=== PATIENT | female | born 1950 | race Caucasian/White ===

== ENCOUNTER → 2017-10-28 12:32 | Outpatient (CLI) | payer MEDICARE, OTHER, SELFPAY ==
--- NOTE | 2017-10-28 12:47 | EKG12_ITS ---
Test Reason : ATYPICAL CP Blood Pressure : / mmHG Vent. Rate : 070 BPM Atrial Rate : 070 BPM P-R Int : 126 ms QRS Dur : 108 ms QT Int : 406 ms P-R-T Axes : 053 066 049 degrees QTc Int : 438 ms Normal sinus rhythm Incomplete right bundle branch block Borderline ECG Confirmed by TL DAWSON, CISCO ([id number]), graphic editor DENIZ TAPIA ([id number] on 10/31/2017 3:48:33 PM Referred By: Evelia Tristan Confirmed By:CISCO BOOTHE MD
== END ==
PROVIDERS: Family Provider Internal Medicine; PCP Internal Medicine; Visit Provider Internal Medicine
DX: R07.89 Other chest pain (principal)
CPT/HCPCS: 93005

== ENCOUNTER → 2018-02-22 10:47 | Outpatient (CLI) | payer MEDICARE, OTHER, SELFPAY ==
--- NOTE | 2018-02-22 10:50 | US_ITS ---
STUDY: RENAL ULTRASOUND - COMPLETE REASON FOR EXAM: Female, 67 years old. Incomplete bladder emptying TECHNIQUE: Ultrasound evaluation of the kidneys was performed with real-time and static mae-scale imaging. COMPARISON: CT 09/16/2016 FINDINGS: RIGHT KIDNEY: Normal location of the right kidney, which is normal in size. The right kidney measures 9.9 x 3.7 x 4.5 cm. There is a normal cortex of the right kidney. The renal cortex measures 1.4 cm. There is no right renal mass or cyst. There are no right renal calculi. There is no right hydronephrosis. DISTAL RIGHT URETER: There is non-visualization of the distal right ureter. There is no demonstrated right ureterovesical junction calculus. There is a visualized right ureteral jet. LEFT KIDNEY: Normal location of the left kidney, which is normal in size. The left kidney measures 10 x 3.7 x 4.6 cm. There is a normal cortex of the left kidney. The renal cortex measures 1.3 cm. There is no left renal mass or cyst. There are no left renal calculi. There is no left hydronephrosis. DISTAL LEFT URETER: There is non-visualization of the distal left ureter. There is no demonstrated left ureterovesical junction calculus. There is a visualized left ureteral jet. AORTA: Not imaged. I.V.C.: Not imaged. BLADDER: The distended urinary bladder has a volume of 216 ml. The empty urinary bladder has a volume of 87 ml. The bladder wall thickness measures 3.6 mm. US/Kidney and Bladder IMPRESSION: The kidneys have a normal sonographic appearance. Incomplete bladder emptying. Mild bladder wall thickening. Electronically Signed: Joshua Wolfe DO at 11:02 EDT Tel , Service support ,
== END ==
PROVIDERS: Family Provider Internal Medicine; PCP Internal Medicine; Visit Provider Nurse Practitioner Adult Health
DX: N30.20 Other chronic cystitis without hematuria (principal); R33.9 Retention of urine, unspecified
CPT/HCPCS: 76770

== ENCOUNTER → 2018-06-15 08:42 | Outpatient (CLI) | payer MEDICARE, OTHER, SELFPAY ==
--- NOTE | 2018-06-15 08:44 | RAD_ITS ---
STUDY: X-RAY - LEFT KNEE REASON FOR EXAM: Female, 67 years old. Knee pain. TECHNIQUE: 4 view(s) of the knee. COMPARISON: None. FINDINGS: Normal visualized distal femur. Normal visualized proximal tibia and fibula. Normal proximal tibiofibular articulation. There is mild arthrosis of the medial femorotibial compartment. Normal lateral femorotibial compartment. Normal patellofemoral articulation. The soft tissue structures are unremarkable. RAD/Knee 4 or More Views IMPRESSION: Mild arthrosis of the medial femorotibial compartment. Electronically Signed: Pete Corcoran MD at 17:06 EDT , Service support ,
== END ==
PROVIDERS: Family Provider Internal Medicine; PCP Internal Medicine; Visit Provider Orthopaedic Surgery
DX: M25.562 Pain in left knee (principal)
CPT/HCPCS: 73564

== ENCOUNTER → 2018-08-21 17:06 | Outpatient (CLI) | payer MEDICARE, OTHER, SELFPAY ==
--- OUTSIDE RECORDS SUMMARY | 2018-10-03 16:23 | XMS RPT_ITS ---
:1950 Author Organization OHIP Care Team Providers Name Role Phone RIGO ALFARO MD Admitting Unavailable RIGO ALFARO MD Attending Unavailable RIGO ALFARO MD Primary Care Unavailable RIGO ALFARO MD Admitting Unavailable RIGO ALFARO MD Attending Unavailable RIGO ALFARO MD Primary Care Unavailable RIGO ALFARO MD Admitting Unavailable RIGO ALFARO MD Attending Unavailable RIGO ALFARO MD Primary Care Unavailable Rigo Alfaro Attending Unavailable Rigo Alfaro Referring Unavailable Rigo Alfaro Primary Care Unavailable Jacinto Emerson Attending Unavailable Rigo Alfaro Referring Unavailable Abigail Beatty Attending Unavailable Rigo Alfaro Primary Care Unavailable Alexandra Dewey Attending Unavailable Rigo Alfaro Referring Unavailable Rigo Alfaro Primary Care Unavailable Alexandra Dewey Attending Unavailable Alexandra Dewey Referring Unavailable Rigo Alfaro Primary Care Unavailable Luis Alberto Montague Attending Unavailable Luis Alberto Montague Referring Unavailable Rigo Alfaro Primary Care Unavailable PROBLEMS PROBLEMS DATE TYPE CONDITION / CODE ATTENDING STATUS SOURCE 06/15/2018 Unknown R52 - Pain, Chicorelli, Active [facility] unspecified / [facility] R52(ICD-10) Hospital Repository 02/22/2018 Unknown R33.9 - Retention Jaci, Abigail Active [facility] of urine, M Community unspecified / Hospital R33.9(ICD-10) Repository 02/22/2018 Unknown N30.20 - Other Jaci, Abigail Active [facility] chronic cystitis M Community without hematuria Hospital / N30.20(ICD-10) Repository 12/06/2017 Unknown R07.9 - Chest Ki, Jacinto Active [facility] pain, unspecified Community / R07.9(ICD-10) Hospital Repository 10/27/2017 Principle [facility] diabetes mellitus [facility] / Z131(ICD-10) Repository 10/27/2017 Secondary Encounter for RIGO ALFARO [facility] Diagnosis screening for [facility] lipoid disorders [facility] / [id number](ICD-10) Repository PROCEDURES PROCEDURES No Procedure Records FoundRESULTS RESULTS Observed: 08/21/2018 Status: F Source: [place] CULTURE, URINE 10:15 AM [facility] REPOSITORY Urine Culture ORGANISM 1: Enterococcus faecalis [place] Count >100,000 Enterococcus faecalis: REACTION Ampicillin $ <=2 S Benzylpenicillin NF 1 S Ciprofloxacin $ <=0.5 S Gentamicin SYN-S S Levofloxacin $ 0.5 S Linezolid $$$$ 1 S Nitrofurantoin $ <=16 S Streptomycin $ SYN-S S Tetracycline NF >=16 R Vancomycin $ 1 S (NF) indicates non-formulary drug at [facility]. Approval by Infectious Disease Specialist required before non-formulary drugs may be ordered and/or dispensed. * CLSI guidelines does not recommend testing of cephalosporins. This interpretation is deduced from Beta-lactam/penicillin results. Performed By: #### [id number] #### [facility] [place]. [place], [place], [address] Observed: 08/01/2018 Status: F Source: [place] URINE CULTURE 2:45 PM [facility] REPOSITORY Sp. Request/Comment: - Specimen received in preservative Culture Result - >=100,000 CFU/ml Enterococcus faecalis --> ABNORMAL ALERT Cephalosporins, clindamycin, and TMP-SMX are not effective for the treatment of enterococcal infections. --> ABNORMAL ALERT ORGANISM: Enterococcus faecalis METHOD: Minimum inhibitory concentration(Vitek) Antibiotic Interp JACOB Status Ampicillin SUSCEPTIBLE <=2 F Nitrofurantoin SUSCEPTIBLE <=16 F Vancomycin SUSCEPTIBLE 1 F Performed By: #### URCUL #### [facility] [address] [place] [address] PROGRESS Observed: 08/01/2018 Status: COMPLETED Source: JUDA 2:27 PM [facility] REPOSITORY HNO ID: [id number] Author: Dina Duffy Service: (none) Author Type: Physician Child Neurologist Type: Progress Notes Filed: 08/01/2018 6:56 PM Note Text: 08/01/2018 Patient presents with: UTI: burning, urgency and frequency x several weeks-has been on Cipro but it did not get rid of symptoms SUBJECTIVE: This is a 68 year old that is here today for Complaint(s) of dysuria and urinary frequency x several weeks. Has had frequent infections following a bowel resection. She follows with urology-Radha Beatty. She did take some cipro she had been prescribed. Symptoms did not resolve. Denies fever/chills, vomiting, back pain, abdominal pain.. 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 metoprolol tartrate, short acting, (LOPRESSOR) 25 mg tablet Take 1 tablet by mouth twice daily. atorvastatin (LIPITOR) 10 mg tablet Take 1 tablet by mouth once daily. ubidecarenone Q-10 (CO Q-10) 10 mg cap Take by mouth once daily. BIOTIN ORAL Take by mouth once daily. ergocalciferol, vitamin D2, (VITAMIN D) 50,000 unit capsule Take 1 capsule by mouth once each week. COMPOUNDED PRESCRIPTION Take 1 capsule by mouth once daily. OTC thyroid supplements Phenylephrine-Acetaminophen 5-325 mg cap Take 1 tablet by mouth daily at bedtime. omega-3 fatty acids(FISH OIL 500 MG CAP) Take one(1) capsule daily. No current facility-administered medications for this visit. SOCIAL HISTORY Social History Marital status: Spouse name: Years of education: Number of children: Social History Main Topics Smoking status: Never Smoker Smokeless tobacco: Never Used Alcohol use: Yes Comment: wine at times Drug use: No REVIEW OF SYSTEMS All other reviewed and negative other than HPI. OBJECTIVE: BP 132/84 Pulse 60 Temp 36.8 ?C (98.3 ?F) (Tympanic) Resp 16 Wt 59.4 kg (131 lb) BMI 24.35 kg/m? APPEARANCE Well appearing, alert, in no acute distress, well-hydrated, well nourished. ABDOMEN , no bruits, soft, non-tender, non-distended BACK: Normal exam, no CVA TTP ASSESSMENT/PLAN: 1. Dysuria - ICD9: 788.1, ICD10: R30.0 acute - UA positive for lisa esterase and hematuria - Send urine for culture - Begin treatment with Bactrim DS BID for 5 days - Patient education for prevention given - UA DIP, URINE (POC) - URINE CULTURE - SULFAMETHOXAZOLE 800 MG-TRIMETHOPRIM 160 MG TABLET The patient indicates understanding of these issues and agrees with the plan. Reviewed red flags and when to seek care sooner. Dina Duffy PA-C CNOV Observed: 08/01/2018 Status: COMPLETED Source: JUDA 2:15 PM [facility] REPOSITORY Office Visit (WSTR) KIMANIALLYSSA DAILY ([id number]) 1950 F Date Time Provider Department 08/01/18 2:15 PM DINA DUFFY) [facility] During your visit today, we recorded the following information about you: Temperature Pulse Respiration Blood pressure 98.3 degrees 60/minute 16/minute 132/84 Weight 59.4 kg Dina Duffy PA-C 08/01/2018 6:56 PM Signed 08/01/2018 Patient presents with: UTI: burning, urgency and frequency x several weeks-has been on Cipro but it did not get rid of symptoms SUBJECTIVE: This is a 68 year old that is here today for Complaint(s) of dysuria and urinary frequency x several weeks. Has had frequent infections following a bowel resection. She follows with urology-Radha Beatty. She did take some cipro she had been prescribed. Symptoms did not resolve. Denies fever/chills, vomiting, back pain, abdominal pain.. 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 metoprolol tartrate, short acting, (LOPRESSOR) 25 mg tablet Take 1 tablet by mouth twice daily. atorvastatin (LIPITOR) 10 mg tablet Take 1 tablet by mouth once daily. ubidecarenone Q-10 (CO Q-10) 10 mg cap Take by mouth once daily. BIOTIN ORAL Take by mouth once daily. ergocalciferol, vitamin D2, (VITAMIN D) 50,000 unit capsule Take 1 capsule by mouth once each week. COMPOUNDED PRESCRIPTION Take 1 capsule by mouth once daily. OTC thyroid supplements Phenylephrine-Acetaminophen 5-325 mg cap Take 1 tablet by mouth daily at bedtime. omega-3 fatty acids(FISH OIL 500 MG CAP) Take one(1) capsule daily. No current facility-administered medications for this visit. SOCIAL HISTORY Social History Marital status: Spouse name: Years of education: Number of children: Social History Main Topics Smoking status: Never Smoker Smokeless tobacco: Never Used Alcohol use: Yes Comment: wine at times Drug use: No REVIEW OF SYSTEMS All other reviewed and negative other than HPI. OBJECTIVE: BP 132/84 Pulse 60 Temp 36.8 ?C (98.3 ?F) (Tympanic) Resp 16 Wt 59.4 kg (131 lb) BMI 24.35 kg/m? APPEARANCE Well appearing, alert, in no acute distress, well- hydrated, well nourished. ABDOMEN , no bruits, soft, non-tender, non-distended BACK: Normal exam, no CVA TTP ASSESSMENT/PLAN: 1. Dysuria - ICD9: 788.1, ICD10: R30.0 acute - UA positive for lisa esterase and hematuria - Send urine for culture - Begin treatment with Bactrim DS BID for 5 days - Patient education for prevention given - UA DIP, URINE (POC) - URINE CULTURE - SULFAMETHOXAZOLE 800 MG-TRIMETHOPRIM 160 MG TABLET The patient indicates understanding of these issues and agrees with the plan. Reviewed red flags and when to seek care sooner. Dina Duffy PA-C Referring Provider: SELF [200] Allergies As of Date: 08/01/2018 Noted Allergy Reaction CODEINE 05/09/2006 10 - Anaphylaxis Date Reviewed: 08/01/2018 Reviewed by: Desirae Pearl LPN - Fully Assessed Reason for Visit: UTI [116] Cmt: burning, urgency and frequency x several weeks-has been on Cipro but it did not get rid of symptoms Primary Visit Diagnosis:Dysuria [R30.0] Order(s):UA DIP, URINE (POC) [[id number]] Order #: [id number]. #:[id number] URINE CULTURE [SQUUL] Order #: [id number] sulfamethoxazole-trimethoprim (BACTRIM DS) 800-160 mg per tabletTake 1 tablet by mouth twice daily for 5 days.Disp: 10 tabletRfl: 0 Prescriptions as of 08/01/2018 Sig: ASPIRIN 81 MG TABLET,DELAYED * Take 81 mg by mouth once elli* METOPROLOL TARTRATE 25 MG TAB* Take 1 tablet by mouth twice * ATORVASTATIN 10 MG TABLET Take 1 tablet by mouth once d* COENZYME Q10 10 MG CAPSULE Take by mouth once daily. BIOTIN ORAL Take by mouth once daily. ERGOCALCIFEROL (VITAMIN D2) 5* Take 1 capsule by mouth once * COMPOUNDED PRESCRIPTION Take 1 capsule by mouth once * PHENYLEPHRINE 5 MG-ACETAMINOP* Take 1 tablet by mouth daily * FISH OIL 500 MG CAPSULE Take one(1) capsule daily. 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 Encounter Status:Closed by DINA DUFFY PA-C on 08/01/18 ORTHOPEDIC VISIT Observed: 06/15/2018 Status: F Source: [place] REPORT 9:24 AM [facility] REPOSITORY [facility] [address] [place] [address] OFFICE VISIT Date of Service: 06/15/18 MR#: [id number] Acct: [id number] Name: ALLYSSA HARMAN Rep #: [id number] : 1950 Provider: Alexandra Dewey DO Age/Sex: 67/F Location: [facility] [place] [place] Status: Signed Intake Intake Visit Reasons: CK LT KNEE PAIN - NO XRAYS Sand Bobber Required: No Accompanied by: None Is patient in pain?: Yes (left knee) Pain scale (1-10): 1 Allergies codeine Allergy (Verified 01/12/17 05:48) Shortness of breath Medications Biotin 1,000 mcg PO DAILY 01/07/17 [History Confirmed 01/12/17] Equate Sever Allergy 1 tab PO QHS 01/07/17 [History Confirmed 01/12/17] Ergocalciferol [Vitamin D] 50,000 unit PO WE 01/07/17 [History Confirmed 01/12/17] Thyroid Energy 1 cap PO DAILY 01/07/17 [History Confirmed 01/12/17] Ubidecarenone [Coq10] 400 mg PO DAILY 01/07/17 [History Confirmed 01/12/17] Aspirin [Aspirin, Baby] 81 mg PO DAILY@0800 #30 tab.chew 01/15/17 [Rx] omega-3 fatty acids 1,000 mg capsule 1,000 mg PO DAILY 06/15/18 [History Confirmed 06/15/18] PFSH Medical History History of diverticulitis (Acute) history of tubal (Acute) pylynodol cyst (Acute) Surgical History History of hysterectomy (Acute) History of tonsillectomy (Acute) Family History Mother Breast cancer Arthritis Father Myocardial infarction Grandmother Arthritis Diabetes Social History Smoking Status: Never smoker alcohol intake: current alcohol intake frequency: holidays/special occasions only Alcohol type: wine HPI CK LT KNEE PAIN - NO XRAYS: Details: ALLYSSA HARMAN is a 67 year old F here today for left knee pain. Patient has had knee pain since September 2017. Patient states no known injury, but attributes the pain to being on her knees while playing with her granddaughter. Patient states the last 3 weeks has gotten worse. Patient rates her pain as a 1/10 today and describes as a burning pain. Patients pain is on the lateral left knee, the pain does not radiate. Bending or bumping the knee seems to make the pain worse. Has had some swelling which she used ice and ibuprofen to help. Denies PT, MRI, xrays and injections. Patient denies popping or clicking. Ortho Exam Left Knee Skin/Wound: Yes CDI Contralateral Normal: Yes Swelling: No Homans Sign: No Knee ROM: Yes ROM-Extension -20 to 0, Yes ROM-Flexion 0-140 (120) Examination: Yes Lat jt line tenderness, No med jt line tenderness, Yes Pain with flexion Assessment AND Plan 1. 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 X-rays were reviewed. There is no obvious fracture, dislocation, or lucency noted. Educated on the anatomy of the knee and etiology of her pain and explained that with the lat jt line pain and the pain with flexion she likely has a degenerative lateral meniscus tear. Her treatment options are HEP, steroid injection and/or PT and if that fails we will order an MRI. Gave AAOS knee program today and encouraged strengthening, if her pain worsens we can do injection. Reviewed the option of brace use, but would rather her strengthening than rely on brace. Follow up as needed for injection or sooner if pain, swelling, numbness or associated symptoms, or concerns develop. All questions answered. Patient in agreement of plan. 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 M23.301 06/15/18 0924 <Electronically signed by Alexandra Dewey DO> Date Alexandra Dewey DO Cosigner Signature: Date (if applicable) CC: KNEE 4 OR MORE Observed: 06/15/2018 Status: F Source: [facility] 8:44 AM [facility] REPOSITORY [facility] Imaging Services [address] [place] [id number] Knee 4 or More Views MR#: [id number] Acct: [id number] Name: ALLYSSA HARMAN Rep #: [id number] : 1950 F 67 From: Pete Corcoran MD PCP: Rigo Alfaro MD Status: REG CLI Study: Knee 4 or More Views Date of Exam: 06/15/18 Exam# [id number] Ordering Dr: Alexandra Dewey DO STUDY: X-RAY - LEFT KNEE REASON FOR EXAM: Female, 67 years old. Knee pain. TECHNIQUE: 4 view(s) of the knee. COMPARISON: None. FINDINGS: Normal visualized distal femur. Normal visualized proximal tibia and fibula. Normal proximal tibiofibular articulation. There is mild arthrosis of the medial femorotibial compartment. Normal lateral femorotibial compartment. Normal patellofemoral articulation. The soft tissue structures are unremarkable. RAD/Knee 4 or More Views IMPRESSION: Mild arthrosis of the medial femorotibial compartment. Electronically Signed: Pete Corcoran MD at 17:06 EDT , Service support , CC: Alexandra Dewey DO; Rigo Alfaro MD Operating Room Rn: Signed KIDNEY AND BLADDER Observed: 02/22/2018 Status: F Source: [place] 10:52 AM [facility] REPOSITORY [facility] Imaging Services [address] [place] [address] Kidney and Bladder MR#: [id number] Acct: [id number] Name: ALLYSSA HARMAN Rep #: [id number] : 1950 F 67 From: Joshua Wolfe DO PCP: Rigo Alfaro MD Status: REG CLI Study: Kidney and Bladder Date of Exam: 02/22/18 Exam# [id number] Ordering Dr: Abigail Beatty THREAD MARKER-C STUDY: RENAL ULTRASOUND - COMPLETE REASON FOR EXAM: Female, 67 years old. Incomplete bladder emptying TECHNIQUE: Ultrasound evaluation of the kidneys was performed with real-time and static mae-scale imaging. COMPARISON: CT 09/16/2016 FINDINGS: RIGHT KIDNEY: Normal location of the right kidney, which is normal in size. The right kidney measures 9.9 x 3.7 x 4.5 cm. There is a normal cortex of the right kidney. The renal cortex measures 1.4 cm. There is no right renal mass or cyst. There are no right renal calculi. There is no right hydronephrosis. DISTAL RIGHT URETER: There is non-visualization of the distal right ureter. There is no demonstrated right ureterovesical junction calculus. There is a visualized right ureteral jet. LEFT KIDNEY: Normal location of the left kidney, which is normal in size. The left kidney measures 10 x 3.7 x 4.6 cm. There is a normal cortex of the left kidney. The renal cortex measures 1.3 cm. There is no left renal mass or cyst. There are no left renal calculi. There is no left hydronephrosis. DISTAL LEFT URETER: There is non-visualization of the distal left ureter. There is no demonstrated left ureterovesical junction calculus. There is a visualized left ureteral jet. AORTA: Not imaged. I.V.C.: Not imaged. BLADDER: The distended urinary bladder has a volume of 216 ml. The empty urinary bladder has a volume of 87 ml. The bladder wall thickness measures 3.6 mm. US/Kidney and Bladder IMPRESSION: The kidneys have a normal sonographic appearance. Incomplete bladder emptying. Mild bladder wall thickening. Electronically Signed: Joshua Wolfe DO at 11:02 EDT Tel , Service support , CC: Rigo Alfaro MD; Abigail Beatty NP Operating Room Rn: Signed PROGRESS Observed: 01/12/2018 Status: COMPLETED Source: JUDA 12:[address] [facility] REPOSITORY HNO ID: [id number] Author: Juan Macdonald Service: (none) Author Type: Physician Type: Progress Notes Filed: 01/12/2018 1:10 PM Note Text: Patient presents with: UTI: Frequency and urgency X today HPI: Symptoms since this morning. Dysuria: a little, +pressure Frequency: Yes Hematuria: No Nausea: No Fever or chills: No Back pain: No Abdominal pain: No Prior UTI: Yes. Treated here for Enterococcus UTI in October with nitrofurantoin. MEDICATIONS: Current Outpatient Prescriptions: aspirin, enteric coated (ASPIRIN, ENTERIC COATED) 81 mg EC tablet Take 81 mg by mouth once daily. metoprolol tartrate, short acting, (LOPRESSOR) 25 mg tablet Take 1 tablet by mouth twice daily. atorvastatin (LIPITOR) 10 mg tablet Take 1 tablet by mouth once daily. ubidecarenone Q-10 (CO Q-10) 10 mg cap Take by mouth once daily. BIOTIN ORAL Take by mouth once daily. ergocalciferol, vitamin D2, (VITAMIN D) 50,000 unit capsule Take 1 capsule by mouth once each week. COMPOUNDED PRESCRIPTION Take 1 capsule by mouth once daily. OTC thyroid supplements Phenylephrine-Acetaminophen 5-325 mg cap Take 1 tablet by mouth daily at bedtime. omega-3 fatty acids(FISH OIL 500 MG CAP) Take one(1) capsule daily. No current facility-administered medications for this visit. ALLERGIES: ALLERGIES Allergen Reactions - Codeine Anaphylaxis VITALS: BP 116/76 Pulse 80 Temp 37.2 ?C (98.9 ?F) (Tympanic) Resp 18 Wt 56.7 kg (125 lb) BMI 23.24 kg/m2 PHYSICAL EXAM: GEN: NAD HEENT: EOMI, conjunctiva clear, moist mucous membranes HEART: regular rate and rhythm, no murmurs LUNGS: clear to auscultation, no wheezes or crackles, no increased WOB ABDOMEN: Soft, nondistended, no masses, no suprapubic tenderness BACK: No CVA tenderness Component Latest Ref Rng AND Units 01/25/2017 eGFR-All Other Races . 56 ASSESSMENT/PLAN: 1. Dysuria - ICD9: 788.1, ICD10: R30.0 Recurrent x 3 since having hemicolectomy last year for diverticular disease. She may consider FIRE MANAGEMENT OFFICER or urology evaluation. - UA positive for moderate lisa esterase and hematuria - URINE CULTURE - UA DIP B/O - NITROFURANTOIN MONOHYDRATE AND MACROCRYSTAL 100 MG ORAL CAP Juan Macdonald MD CNOV Observed: 01/12/2018 Status: COMPLETED Source: JUDA 12:45 PM [facility] REPOSITORY Office Visit (WSTR) ALLYSSA HARMAN ([id number]) 1950 F Date Time Provider Department 01/12/18 12:45 PM JUAN MACDONALD [facility] During your visit today, we recorded the following information about you: Temperature Pulse Respiration Blood pressure 98.9 degrees 80/minute 18/minute 116/76 Weight 56.7 kg Juan Macdonald MD 01/12/2018 1:10 PM Signed Patient presents with: UTI: Frequency and urgency X today HPI: Symptoms since this morning. Dysuria: a little, +pressure Frequency: Yes Hematuria: No Nausea: No Fever or chills: No Back pain: No Abdominal pain: No Prior UTI: Yes. Treated here for Enterococcus UTI in October with nitrofurantoin. MEDICATIONS: Current Outpatient Prescriptions: aspirin, enteric coated (ASPIRIN, ENTERIC COATED) 81 mg EC tablet Take 81 mg by mouth once daily. metoprolol tartrate, short acting, (LOPRESSOR) 25 mg tablet Take 1 tablet by mouth twice daily. atorvastatin (LIPITOR) 10 mg tablet Take 1 tablet by mouth once daily. ubidecarenone Q-10 (CO Q-10) 10 mg cap Take by mouth once daily. BIOTIN ORAL Take by mouth once daily. ergocalciferol, vitamin D2, (VITAMIN D) 50,000 unit capsule Take 1 capsule by mouth once each week. COMPOUNDED PRESCRIPTION Take 1 capsule by mouth once daily. OTC thyroid supplements Phenylephrine-Acetaminophen 5-325 mg cap Take 1 tablet by mouth daily at bedtime. omega-3 fatty acids(FISH OIL 500 MG CAP) Take one(1) capsule daily. No current facility-administered medications for this visit. ALLERGIES: ALLERGIES Allergen Reactions - Codeine Anaphylaxis VITALS: BP 116/76 Pulse 80 Temp 37.2 ?C (98.9 ?F) (Tympanic) Resp 18 Wt 56.7 kg (125 lb) BMI 23.24 kg/m2 PHYSICAL EXAM: GEN: NAD HEENT: EOMI, conjunctiva clear, moist mucous membranes HEART: regular rate and rhythm, no murmurs LUNGS: clear to auscultation, no wheezes or crackles, no increased WOB ABDOMEN: Soft, nondistended, no masses, no suprapubic tenderness BACK: No CVA tenderness Component Latest Ref Rng ANDamp; Units 01/25/2017 eGFR-All Other Races . 56 ASSESSMENT/PLAN: 1. Dysuria - ICD9: 788.1, ICD10: R30.0 Recurrent x 3 since having hemicolectomy last year for diverticular disease. She may consider FIRE MANAGEMENT OFFICER or urology evaluation. - UA positive for moderate lisa esterase and hematuria - URINE CULTURE - UA DIP B/O - NITROFURANTOIN MONOHYDRATE ANDamp; MACROCRYSTAL 100 MG ORAL CAP Juan Macdonald MD Referring Provider: SELF [200] Allergies As of Date: 01/12/2018 Noted Allergy Reaction CODEINE 05/09/2006 10 - Anaphylaxis Date Reviewed: 01/12/2018 Reviewed by: Radha Bahena LPN - Fully Assessed Reason for Visit: UTI [116] Cmt: Frequency and urgency X today Primary Visit Diagnosis:Dysuria [R30.0] Order(s):URINE CULTURE [SQURCUL] Order #: [id number] UA DIP B/O [[id number]] Order #: [id number] nitrofurantoin monohydrate and macrocrystal (MACROBID) 100 mg capsuleTake 1 capsule by mouth twice daily with meals for 7 days.Disp: 14 capsuleRfl: 0 Prescriptions as of 01/12/2018 Sig: NITROFURANTOIN MONOHYDRATE AND * Take 1 capsule by mouth twice* ASPIRIN 81 MG TABLET,DELAYED * Take 81 mg by mouth once elli* METOPROLOL TARTRATE 25 MG TAB* Take 1 tablet by mouth twice * ATORVASTATIN 10 MG TABLET Take 1 tablet by mouth once d* COENZYME Q10 10 MG CAPSULE Take by mouth once daily. BIOTIN ORAL Take by mouth once daily. ERGOCALCIFEROL (VITAMIN D2) 5* Take 1 capsule by mouth once * COMPOUNDED PRESCRIPTION Take 1 capsule by mouth once * PHENYLEPHRINE 5 MG-ACETAMINOP* Take 1 tablet by mouth daily * FISH OIL 500 MG CAPSULE Take one(1) capsule daily. 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 Encounter Status:Closed by JUAN MACDONALD MD on 01/12/18 Observed: 01/12/2018 Status: F Source: JUDA URINE CULTURE 4:17 AM [facility] REPOSITORY Sp. Request/Comment: - Specimen received in preservative Culture Result - >=100,000 CFU/ml Enterococcus faecalis --> ABNORMAL ALERT Cephalosporins, clindamycin, and TMP-SMX are not effective for the treatment of enterococcal infections. --> ABNORMAL ALERT ORGANISM: Enterococcus faecalis METHOD: Minimum inhibitory concentration(Vitek) Antibiotic Interp JACOB Status Ampicillin SUSCEPTIBLE <=2 F Nitrofurantoin SUSCEPTIBLE <=16 F Vancomycin SUSCEPTIBLE 1 F Performed By: #### URCUL #### [facility] [address], [place] [address] Observed: 11/15/2017 Status: F Source: JUDA URINE CULTURE 10:25 AM [facility] REPOSITORY Sp. Request/Comment: - Specimen received in preservative Culture Result - >=100,000 CFU/ml Enterococcus faecalis --> ABNORMAL ALERT Cephalosporins, clindamycin, and TMP-SMX are not effective for the treatment of enterococcal infections. --> ABNORMAL ALERT ORGANISM: Enterococcus faecalis METHOD: Minimum inhibitory concentration(Vitek) Antibiotic Interp JACOB Status Ampicillin SUSCEPTIBLE <=2 F Nitrofurantoin SUSCEPTIBLE <=16 F Vancomycin SUSCEPTIBLE 1 F Performed By: #### URCUL #### [facility] [address] [place], [place] [address] PROGRESS Observed: 11/15/2017 Status: COMPLETED Source: JUDA 10:[address] [facility] REPOSITORY HNO ID: [id number] Author: Amanuel (Sunday) Abmer Service: (none) Author Type: Nurse Practitioner Type: Progress Notes Filed: 11/15/2017 12:02 PM Note Text: Subjective HPI Patient is a reliable old here today with a history of burning with urination. States she is urinating more frequently. She denies foul odor or jose cruz blood in her urine. Denies flank pain. Feels she has lower abdominal pressure. Denies fever. She has tried drinking more water. No OTC medication has been taking. Nothing makes it better. Feels like she is getting worse. No other concerns at this time. Review of Systems Constitutional: Negative for chills, fever and malaise/fatigue. Gastrointestinal: Positive for abdominal pain (suprapubic pressure). Genitourinary: Positive for dysuria, frequency and urgency. Negative for flank pain and hematuria. Musculoskeletal: Positive for back pain (low back ache). All other systems reviewed and are negative. PAST MEDICAL HISTORY Diagnosis Date - Benign neoplasm of colon - Benign neoplasm of rectum and anal canal - Mitral valve disorders(424.0) - Personal history of colonic polyps PAST SURGICAL HISTORY Procedure Laterality Date - COLONOSCOPY W/BX 01/11/12 - HYSTERECTOMY HX 1979 - LAP, SURG MOBIL SPLENIC FL DUR PTL COLECTOMY 01/12/2017 - LAPARO PARTIAL COLECTOMY - LAPAROSCOPIC HEMICOLECTOMY 01/12/2017 - PILONIDAL CYST/SINUS EXCISION 1967 - RHINOPLASTY 1969 - SIGMOIDOSCOPY FLEX DIAG 02/22/2012 - SIGMOIDOSCOPY FLEX DIAG 10/23/2013 Repeat in 3 years - THERMAL ENDOMETRIAL ABLATION 1975 ALLERGIES Codeine MEDICATIONS aspirin, enteric coated (ASPIRIN, ENTERIC COATED) 81 mg EC tablet Take 81 mg by mouth once daily. metoprolol tartrate, short acting, (LOPRESSOR) 25 mg tablet Take 1 tablet by mouth twice daily. atorvastatin (LIPITOR) 10 mg tablet Take 1 tablet by mouth once daily. ubidecarenone Q-10 (CO Q-10) 10 mg cap Take by mouth once daily. BIOTIN ORAL Take by mouth once daily. ergocalciferol, vitamin D2, (VITAMIN D) 50,000 unit capsule Take 1 capsule by mouth once each week. COMPOUNDED PRESCRIPTION Take 1 capsule by mouth once daily. OTC thyroid supplements Phenylephrine-Acetaminophen 5-325 mg cap Take 1 tablet by mouth daily at bedtime. omega-3 fatty acids(FISH OIL 500 MG CAP) Take one(1) capsule daily. FAMILY HISTORY Problem Relation Age of Onset - Coronary Artery Disease Father - mvp [OTHER] Brother - Coronary Artery Disease Paternal Grandfather Social History Substance Use Topics - Smoking status: Never Smoker - Smokeless tobacco: Never Used - Alcohol use Yes Comment: wine at times BP 128/86 (BP Site: Left Arm, BP Position: Sitting, BP Cuff Size: Regular Adult) Pulse 84 Temp 36.6 ?C (97.8 ?F) (Left Tympanic) Resp 16 Wt 56.3 kg (124 lb 3.2 oz) SpO2 98% BMI 23.09 kg/m2 Objective Physical Exam Constitutional: She is well-developed, well-nourished, and in no distress. HENT: Head: Normocephalic and atraumatic. Cardiovascular: Normal rate and regular rhythm. Pulmonary/Chest: Effort normal and breath sounds normal. Abdominal: Soft. Negative CVA tenderness bilaterally. + Suprapubic pressure with palpation Skin: Skin is warm. She is not diaphoretic. Nursing note and vitals reviewed. ASSESSMENT/PLAN: 1. Dysuria - ICD9: 788.1, ICD10: R30.0 acute - UA positive for lisa esterase - Send urine for culture - Patient education for prevention given - UA DIP B/O - URINE CULTURE - CEPHALEXIN 500 MG CAPSULE Prescription instructions reviewed with patient as applicable. Patient advised if symptoms do not improve or if symptoms worsen sooner, to contact their primary care physician. Potential red flag symptoms discussed with the patient. Reviewed appropriate action plan to take if red flag symptoms occur. Patient agreeable to treatment plan. Amanuel Clark CNP 12 LEAD ELECTROCARDIOGRAM Observed: 10/31/2017 Status: F Source: [place]CH[place] 3:48 PM [facility] REPOSITORY [facility] Cardiovascular Services [address] [place] [address] 12 Lead EKG 10/28/17 1258 MR#: [id number] Acct: [id number] Name: ALLYSSA HARMAN Rep #: [id number] : 1950 67 From: Jacinto Emerson MD Attending Dr: Rigo Alfaro MD Status: REG CLI Ordering Dr: Rigo Alfaro MD Date: 10/28/17 Location: [facility] Sex: F C Admitted: Test Reason : ATYPICAL CP Blood Pressure : / mmHG Vent. Rate : 070 BPM Atrial Rate : 070 BPM P-R Int : 126 ms QRS Dur : 108 ms QT Int : 406 ms P-R-T Axes : 053 066 049 degrees QTc Int : 438 ms Normal sinus rhythm Incomplete right bundle branch block Borderline ECG Confirmed by KI DAWSON, JACINTO ([id number]), online editor DENIZ TAPIA ([id number]) on 10/31/2017 3:48:33 PM Referred By: Rigo Alfaro Confirmed By:JACINTO EMERSON MD 10/31/17 1548 Date Jacinto Emerson MD CC: Rigo Alfaro MD Signed ALLERGIES ALLERGIES DATE TYPE / CODE NAME / CODE REACTION SEVERITY SOURCE 01/12/2017 Drug codeine/B64528 Shortness of Unknown Chante Allergy/416 1550(RXNORM) [facility] Community 229164([email or web address] ED CT) Repository 05/09/2006 DRUG CODEINE ANAPHYLAXIS [facility] INGREDI/[address] [id number]([facility] ED CT) ENCOUNTERS ENCOUNTERS ADMIT/DISCHARGE ACCOUNT ADMITTING ENCOUNTER LOCATION SOURCE NUMBER CLASS 08/21/2018 [id number] [facility] ing:LABSPEC Repository 08/01/2018/08/16/20 [id number] Ambulatory [address] Repository 06/15/2018 [id number] [facility] ing:HPRAD Repository 06/15/2018/06/15/20 [id number] Ambulatory BMSBuilding:B [place] [address] [facility] Repository 02/22/2018 [id number] Ambulatory [facility] ing:OPUS Repository 01/12/2018/03/10/20 [id number] Ambulatory [address] Repository 11/15/2017/11/16/19 [id number] Ambulatory [address] Repository 10/28/2017 [id number] Ambulatory [facility] ing:CVS Repository 10/28/2017 [id number] Ambulatory BMSBuilding:W [facility] Repository 10/27/2017 [id number] DOMINIC, Ambulatory Selvin Espinosa [facility] Repository 10/27/2017/10/27/19 [id number] DOMINIC, Ambulatory Selvin Espinosa [address] [place] [address] Repository 10/27/2017/10/27/19 [id number] [facility] [address] [place] [address] Repository PAYERS PAYERS ENCOUNTER GUARANTOR PAYER SUBSCRIBER SOURCE 08/21/2018 James Harman[address] ALLYSSA HENDERSONOB: Chante Brenna Insurance:MEDICARE [id number] [address]Brq: (330) Number: Repository [phone] () [id number] Date:2018-08-21 08/21/2018 Secondary ALLYSSA HENDERSONOB: Chante Insurance:[employer]ICO JOSE ELIAS [id number] Number: Repository [id number] Date:[id number] [address]XS: 08/21/2018 Tertiary NOT GIVENUNK Fajardo Insurance:SELF PAY [facility] Number: Effective Repository Date:2018-08-21 06/15/2018 James Harman[address] ALLYSSA L SANTIAGOOB: Fajardo Brenna Insurance:MEDICARE [id number] Memorial Hospital [address]Mry: (330) Number: Repository [phone] () [id number] Date:2018-06-15 06/15/2018 Secondary ALLYSSA L ELIERDOB: Chante Insurance:[employer] JO[employer] ELIAS [id number] Women's Hospital COPolicy Number: Repository [id number] Date:[id number] [address], [place] [address]LO: 06/15/2018 Tertiary NOT GIVENUNK Fajardo Insurance:SELF PAY [facility] Number: Effective Repository Date:2018-06-15 06/15/2018 James Harman[address] ALLYSSA L KERRDOB: Fajardo Brenna Insurance:MEDICARE [id number] [id number]: [phone] Number: Repository [phone] () [id number] Date:2018-06-08 06/15/2018 Secondary ALLYSSA L KERRDOB: Fajardo Insurance:[employer] JO[employer] ELIAS [id number] Women's Hospital COPolicy Number: Repository [id number] Date:[id number] [address], [place] [address]XD: 06/15/2018 Tertiary NOT GIVENUNK Fajardo Insurance:SELF PAY [facility] Number: Effective Repository Date:2018-06-15 02/22/2018 James Harman[address] ALLYSSA L KERRDOB: Fajardo Brenna Insurance:MEDICARE [id number] [id number]: [phone]) Number: Repository [phone] () [id number] Date:2018-01-26 02/22/2018 Secondary ALLYSSA L KERRDOB: Fajardo Insurance:[employer] JOSE ELIAS [id number] Women's Hospital COPolicy Number: Repository [id number] Date:[id number] [address], [place] [address]CL: 02/22/2018 Tertiary NOT GIVENUNK Fajardo Insurance:SELF PAY [facility] Number: Effective Repository Date:2018-01-26 10/28/2017 James Harman[address] ALLYSSA L KERRDOB: Chante Brenna Insurance:MEDICARE [id number] [id number]: [phone]) Number: Repository [phone] () [id number] Date:2017-10-28 10/28/2017 Secondary ALLYSSA DELGADILLORDOB: Fajardo Insurance:[employer] JOSE ELIAS [id number] Women's Hospital COPolicy Number: Repository [id number] Date:9989-32-26[address] [address] [address]PD: 10/28/2017 Tertiary NOT GIVENUNK Fajardo Insurance:SELF PAY [facility] Number: Effective Repository Date:2017-10-28 10/28/2017 James Monroy [address] ALLYSSA L KERRDOB: Fajardo Brenna Insurance:MEDIC[id number] A [facility] [address]Lrf: (330) Number: Repository [phone] () [id number] Date:2017-10-28 10/28/2017 Secondary ALLYSSA L KERRDOB: Fajardo Insurance:[employer] JO[employer] ELIAS [id number] Women's Hospital COPolicy Number: Repository [id number] Date:7368-83-87[address] [address] [address]WY: 10/28/2017 Tertiary NOT GIVENUNK Chante Insurance:SELF PAY [facility] Number: Effective Repository Date:2017-10-28 10/27/2017 KIKI KERRDOB: Primary KIKI KERRDOB: Selvin Espinosa S Insurance:MEDICAREPol [id number] [facility] icy Number: [place], [place] [id number] [facility] Rep[facility] [address]Uyu: [phone]) Date:Plan Name:[place] [address] [phone] () 10/27/2017 KIKI KERRDOB: Primary KIKI KERRDOB: Selvin Espinosa S Insurance:MEDICAREPol [id number] [facility] icy Number: [place], [place] [id number] [facility] Repository [address]Jsg: [phone]) Date:Plan Name:[place] [address] [phone] () 10/27/2017 KIKI WOLF: Primary KIKI WOLF: Selvin Espinosa [id number] S Insurance:MEDICAREPol [id number] [facility] icy Number: [place], [place] [id number] [facility] Repository [address]Lpc: [phone] Date:Plan Name:[place] [address] [phone]
== END ==
PROVIDERS: Family Provider Internal Medicine; PCP Internal Medicine; Referring Provider Urology; Visit Provider Urology
DX: R31.9 Hematuria, unspecified (principal)
CPT/HCPCS: 87077; 87086; 87088; 87186

== ENCOUNTER → 2020-06-16 09:45 | Outpatient (CLI) | payer MEDICARE, OTHER, SELFPAY | PROVIDERS: PCP Physician Assistant; Referring Provider Physician Assistant; Visit Provider Physician Assistant | DX: Z11.59 Encounter for screening for other viral diseases (principal) | CPT/HCPCS: 87635; C9803; U0003 ==

== ENCOUNTER 2022-12-09 10:00 | Outpatient (CLI) | payer MEDICARE, OTHER, SELFPAY | END 2022-12-09 23:59 | disposition home or self-care (01) | LOC: SL 10:46 | PROVIDERS: PCP Physician Assistant; Referring Provider Physician Assistant; Visit Provider Physician Assistant | DX: Z00.00 Encounter for general adult medical examination without abnormal findings (principal) ==

== ENCOUNTER → 2022-12-13 | Outpatient (CLI) | payer MEDICARE, OTHER, SELFPAY | END | disposition home or self-care (01) | PROVIDERS: PCP Physician Assistant; Referring Provider Physician Assistant; Visit Provider Physician Assistant | DX: G47.33 Obstructive sleep apnea (adult) (pediatric) (principal) | CPT/HCPCS: 95810 ==

== ENCOUNTER → 2023-02-08 | Outpatient (CLI) | payer MEDICARE, OTHER, SELFPAY | END | disposition home or self-care (01) | LOC: SL 02-09 16:29 | PROVIDERS: PCP Physician Assistant; Visit Provider Physician Assistant | DX: G47.33 Obstructive sleep apnea (adult) (pediatric) (principal) | CPT/HCPCS: 95811 ==

== ENCOUNTER → 2023-04-18 | Outpatient (CLI) | payer MEDICARE, OTHER, SELFPAY | END | disposition home or self-care (01) | LOC: LABSPEC 16:59 | PROVIDERS: PCP Physician Assistant; Referring Provider Urology; Visit Provider Urology | DX: R30.0 Dysuria (principal) | CPT/HCPCS: 87086 ==

== ENCOUNTER → 2023-08-10 | Outpatient (CLI) | payer MEDICARE, OTHER, SELFPAY | END | disposition home or self-care (01) | LOC: SL 20:27 | PROVIDERS: PCP Physician Assistant; Visit Provider Psychiatry & Neurology Sleep Medicine | DX: G47.33 Obstructive sleep apnea (adult) (pediatric) (principal); F45.8 Other somatoform disorders; Z78.9 Other specified health status | CPT/HCPCS: 95811 ==

== ENCOUNTER 2024-02-28 08:38 | Emergency (ER) | payer MEDICARE, OTHER, SELFPAY ==
[2024-02-28 08:39] VITALS: BP 117/97; PULSE 157; RESP 22; TEMP 35.6; O2SAT 99; BMI 21.1
--- NOTE | 2024-02-28 09:03 | EDS_ITS ---
HPI History of Present Illness Chief Complaint: Palpitations [facility] Medical History History of diverticulitis pylynodol cyst history of tubal Home Medications ?Medication ?Instructions ?Recorded ?Last Taken ?Type Equate Sever Allergy 1 tab PO QHS 01/07/17 Unknown History Thyroid Energy 1 cap PO DAILY 01/07/17 Unknown History biotin 1,000 mcg chewable tablet 1,000 mcg PO DAILY 01/07/17 Unknown History coenzyme Q10 50 mg chewable tablet 400 mg PO DAILY 01/07/17 Unknown History ergocalciferol (vitamin D2) 1,250 50,000 unit PO WE 01/07/17 Unknown History mcg (50,000 unit) capsule (Vitamin D2) omega-3 fatty acids 1,000 mg 1,000 mg PO DAILY 06/15/18 Unknown History capsule (Fish Oil Concentrate) famotidine 20 mg tablet 40 mg PO DAILY 02/28/24 Unknown History metoprolol tartrate 25 mg tablet 12.5 mg (1/2 x 25 mg) PO BID #30 02/28/24 Unknown Rx tabs Allergy/AdvReac Type Severity Reaction Status Date / Time codeine Allergy Shortness Verified 02/28/24 09:13 of breath Family History (Updated 06/15/18 @ 08:33 by Jung Henley) Mother Breast cancer Arthritis Father Myocardial infarction Grandmother Arthritis Diabetes Surgical History History of tonsillectomy History of hysterectomy Social History (Updated 06/15/18 @ 09:[address] Alexandra Dewey, DO) Smoking Status: Never smoker alcohol intake: current alcohol intake frequency: holidays/special occasions only Alcohol type: wine EXAM Physical Exam Const Vital Signs: 02/28/24 08:39 02/28/24 09:11 02/28/24 09:38 Temperature 96.1 F L Temperature Source Temporal Pulse Rate 157 H 133 H Respiratory Rate 22 H 14 Respiratory Effort Normal Respiratory Pattern Normal Blood Pressure 117/97 H 103/78 Blood Pressure Mean 103 86 Pulse Ox 99 100 Oxygen Delivery Method Room Air Room Air 02/28/24 10:00 02/28/24 11:00 Temperature Temperature Source Pulse Rate 94 103 H Respiratory Rate 16 25 H Respiratory Effort Respiratory Pattern Blood Pressure 103/69 94/74 Blood Pressure Mean 80 80 Pulse Ox 94 92 Oxygen Delivery Method Room Air MDM MDM MDM Narrative Medical decision making narrative: HISTORY OF PRESENT ILLNESS: 73-year-old female presents with palpitations that began at 6:30 AM approximate 2 and half hours prior to arrival. Patient notes history of A-fib 6 years ago. She is on any medicines for A-fib because is resolved spontaneously. She notes no chest pain. No shortness of breath. No leg swelling. No bleeding diathesis. No volume loss such as vomiting or diarrhea. The patient denies recent surgery in the last 4 weeks or immobilization in the last 3 days, denies previous diagnosis of DVT or PE, hemoptysis, unilateral leg swelling or malignancy with treatment the last 6 months or palliative. No estrogen use noted. REVIEW OF SYSTEMS: Pertinent positives: Palpitations Pertinent negatives: Chest pain, shortness of breath, dyspnea, lightheadedness, syncope, leg swelling PHYSICAL EXAM: Nursing triage notes reviewed, Vital signs reviewed Constitutional: please see mdm HENT: MMM Eyes: Pupils equal round and reactive to light, Extraocular muscles intact Neck: No stridor, no JVD, full neck ROM Lungs: Clear to auscultation, No wheezing or rales. No increased work of breathing, no conversational dyspnea, no accessory muscle use, no nasal flaring. No respiratory distress noted Heart: fast, irregularly irregular rhythm, no murmurs, No rubs and No gallops, 2+ distal pulses (radial, femoral, posterior tibial) in all extremities Abdomen: Soft, there is no tenderness, rigidity, rebound or guarding, no obvious peritoneal signs, no palpable pulsatile abdominal masses, no auscultated abdominal bruit : No CVAT Extremities: No edema Neuro: No focal neurological deficits, cranial nerves II through XII intact, 5/5 strength in all extremities. Intact sensation to light touch in all extremities, 2+ reflexes bilateral patella tendons. Normal gait. No ataxia. Skin: No rash or lesions noted MEDICAL DECISION MAKING: Chief Complaint: Palpitations External records reviewed: Last stress echocardiogram from 2017 showed an ejection fraction of 67% Factors affecting care: Atrial fibrillation, anemia, Social determinants of health: none History obtained from others: Patient's Consults: none [facility] Narrative: I saw the patient approximate 30 minutes after her arrival. Patient was initially tachycardic otherwise afebrile and nontoxic-appearing. Exam without focal cardiopulmonary normalities. Noted fast but irregularly irregular rhythm consistent with atrial fibrillation. I gave the patient a liter of IV fluids, gave IV metoprolol 5 every 5 minutes for rate control I considered the following differential diagnosis: Arrhythmia, anemia, electrolyte disturbance, ACS While I considered ACS as potential etiology patient no chest pain and no EKG changes to suggest myocardial ischemia I also considered PE as a potential etiology with the patient had no chest pain, no shortness of breath and low risk Wells score. I treat the patient with 2 L IV fluid and 1 dose of 5 mg metoprolol with improvement in rate however she remained in A-fib ALL IMAGES (IF OBTAINED) HAVE BEEN PERSONALLY REVIEWED AND INTERPRETED BY MYSELF. Initial EKG showed A-fib with RVR, normal axis, no intervals, no STEMI CBC without leukocytosis, severe anemia, no thrombocytopenia. BMP without evidence of significant electrolyte abnormalities, no anion gap, no acute kidney injury. The synthesis of the patient's history, physical exam, labs images suggest likely recurrence of prior A-fib. Her [id number] score is low risk. Risk and benefit of anticoagulation was discussed. Patient did not want to start anticoagulation at this time. I did prescribe metoprolol and gave her close cardiology follow-up. Strict return precautions were discussed The patient and/or family, caregivers express understanding. The patient and/or family, caregivers agrees with the plan. Shared decision making: I will have a discussion with the patient and or visitors regarding risk/benefits of further testing or admission. They will be made aware of of the risk/benefits inherent in this decision they will be given the opportunity to voice understanding. Total critical care time today provided was at least 0 minutes. This excludes separately billable procedures. Critical care time (if documented) is secondary to the patient having high probability of clinically significant/life threatening deterioration in the patient's condition which required my urgent intervention. Impression: 1. Paroxysmal A-fib 2. Palpitations Dispo: Discharge home This note was generated with Skigit dictation software. It may contain incorrect words, spelling, and punctuation that were not noted in review of the chart prior to signing. Lab Data Labs: Laboratory Results - last 24 hr 02/28/24 09:05 WBC 6.6 RBC 4.09 L Hgb 12.7 Hct 40.0 MCV 97.8 MCH 31.1 MCHC 31.8 L RDW Std Deviation 47.8 H RDW Coeff of Shruthi 13.2 Plt Count 237 MPV 9.7 Immature Gran % (Auto) 0.200 Neut % (Auto) 59.5 Lymph % (Auto) 25.2 Austin % (Auto) 10.9 H Eos % (Auto) 3.9 Baso % (Auto) 0.3 Absolute Neuts (auto) 3.9 Absolute Lymphs (auto) 1.66 Nucleated RBC % 0 Sodium 140 Potassium 3.9 Chloride 109 H Carbon Dioxide 24.0 Anion Gap 7 BUN 21 H Creatinine 0.84 Estim Creat Clear Calc 49.34 Est GFR (MDRD) Af Amer 85 Est GFR (MDRD) Non-Af 70 BUN/Creatinine Ratio 25.0 H Glucose 133 H Calcium 9.1 Magnesium 2.0 Total Bilirubin 0.30 AST 19 ALT 27 Alkaline Phosphatase 86 Total Protein 7.0 Albumin 3.4 Globulin 3.6 Albumin/Globulin Ratio 0.9 Radiography Diagnostic Testing: Clinical Impression(s) from Imaging Studies Chest X-Ray 02/28/24 09:04 IMPRESSION: Hyperinflation. The lungs are clear. Electronically Signed: Brandt Oliva MD at 9:51 EDT , Discharge Plan Triage Chief Complaint: Palpitations ED Provider: Prince Erickson Dx/Rx/DC Orders Instructions: Metoprolol Oral Tablet, ED AFIB Prescriptions: New metoprolol tartrate 25 mg tablet 12.5 mg PO BID Qty: 30 0RF No Action omega-3 fatty acids [Fish Oil Concentrate] 1,000 mg capsule 1,000 mg PO DAILY ergocalciferol (vitamin D2) [Vitamin D2] 50,000 UNIT capsule 50,000 unit PO WE Patient Comments: SUPPLEMENT coenzyme Q10 50 MG tablet,chewable 400 mg PO DAILY Patient Comments: SUPPLEMENT biotin 1,000 MCG tablet,chewable 1,000 mcg PO DAILY Patient Comments: SUPPLEMENT Equate Sever Allergy 1 tab PO QHS Patient Comments: ALLERGIES Thyroid Energy 1 cap PO DAILY Patient Comments: THYROID famotidine 20 mg tablet 40 mg PO DAILY Primary Care Provider: Kelvin Davis Referrals: Jacinto Emerson MD [Med Staff - Active Staff] - Activity Restrictions/Additional Instructions: Thank you for trusting us with your care today! Please begin taking 12.5 mg of metoprolol (lopressor) twice a day. Once in the morning once at night. Please begin taking a small a 1 mg aspirin as well. Please return to the emergency department if your symptoms change or worsen. Specifically develop shortness of breath, feel lightheaded, dizzy, if you lose consciousness, if you develop chest pain, or leg swelling. Please follow with your primary care physician and/or aircraft systems repairer (Dr. Emerson) For further outpatient evaluation and management. Print Language: Zimbabwean Disposition Disposition: Home, Self Care
--- NOTE | 2024-02-28 09:04 | RAD_ITS ---
STUDY: X-RAY CHEST REASON FOR EXAM: Female, 73 years old. Palpitations TECHNIQUE: Single AP portable view of the chest. COMPARISON: None. FINDINGS: EKG electrodes are seen. Hyperinflation. The lungs are clear. There is no demonstrated pleural abnormality. Normal size heart. Normal mediastinum and manuela. Normal visualized pulmonary arteries. There is atherosclerotic calcification of the aortic arch with tortuosity. Normal visualized thoracic spine. Normal visualized ribs, clavicles, and shoulders. There is no demonstrated abnormality of the visualized soft tissue structures of the upper abdomen. RAD/Chest 1 View (Portable) IMPRESSION: Hyperinflation. The lungs are clear. Electronically Signed: Brandt Oliva MD at 9:51 EDT ,
[2024-02-28] MEDS: 0.9% Normal Saline (1000mL) 1,000 ML 999 ML IV ×2 (09:22→10:34)
[2024-02-28 09:35] LABS: ALB/GLOB Ratio 0.9 RATIO (0.9-2.4); AST(SGOT) 19 U/L (15-37); Alanine Aminotransfer ALT/SGPT 27 U/L (13-56); Albumin, Serum 3.4 g/dL (3.2-5.0); Alkaline Phosphatase 86 U/L (45-117); Anion Gap 7 (5-15); BUN 21 mg/dL (7-18); Calcium,Total 9.1 mg/dL (8.5-10.1); Chloride 109 mmol/L (98-107); Creatinine, Serum 0.84 mg/dL (0.55-1.02); EST Glomerular Filtration Rate 70 mL/min (>60); Est Glom Filt Rate - Afr Amer 85 mL/min (>60); Estimated Creatinine Clearance 49.34 ml/min; Globulin 3.6 g/dL (2.2-4.2); Glucose 133 mg/dL (74-106); Potassium 3.9 mmol/L (3.5-5.1); Sodium Level 140 mmol/L (136-145)
[2024-02-28 09:38] VITALS: BP 103/78; PULSE 133; RESP 14; O2SAT 100
[2024-02-28] MEDS: Metoprolol Tartrate 5 MG/5 ML Vial IV (09:43)
[2024-02-28 10:00] VITALS: BP 103/69; PULSE 94; RESP 16; O2SAT 94
--- NOTE | 2024-02-28 10:10 | EKG12_ITS ---
Test Reason : AFIB RVR Blood Pressure : / mmHG Vent. Rate : 150 BPM Atrial Rate : 000 BPM P-R Int : 000 ms QRS Dur : 094 ms QT Int : 312 ms P-R-T Axes : 000 060 033 degrees QTc Int : 492 ms Critical Test Result: High HR Atrial fibrillation with rapid ventricular response Incomplete right bundle branch block Abnormal ECG Confirmed by Zachary Benites ([id number]), magazine editor GUSTAVO ALFREDO ([id number]) on 02/29/2024 2:52:08 PM Referred By: ANU Confirmed By:Zachary Benites
[2024-02-28 10:46] LABS: Absolute Lymphocyte Count 1.66 X10^3/uL (0.83-4.51); Absolute Neutrophil Count 3.9 X10^3/uL (2.0-7.7); Basophil# 0.02 X10^3/uL; Basophil% 0.3 % (0-1); Eosinophil# 0.26 X10^3/uL; Eosinophils% 3.9 % (0-5); Hemoglobin 12.7 g/dL (12.0-15.0); Lymphocyte # 1.66 X10^3/ul (0.83-4.51); Lymphocyte % 25.2 % (19-41); Mean Corp Hgb Conc 31.8 g/dL (32-36); Mean Corpuscular Hgb 31.1 pg (27.0-32.0); Mean Corpuscular Volume 97.8 fL (81-99); Mean Platelet Vol. 9.7 fl (6.2-12.0); Monocyte# 0.72 X10^3/uL; Monocyte% 10.9 % (0-10); NRBC Flagged by Analyzer 0 % (0-5); Neutrophil # 3.93 X10^3/uL (2.7-7.7); Neutrophil % 59.5 % (47-70); Platelet Count 237 K/mm3 (150-450); RBC Distribution Width CV 13.2 % (11.6-14.6); RBC Distribution Width SD 47.8 fl (35.1-43.9); Red Blood Count 4.09 M/mm3 (4.2-5.4); White Blood Count 6.6 K/mm3 (4.4-11.0)
[2024-02-28 11:00] VITALS: BP 94/74; PULSE 103; RESP 25; O2SAT 92
--- NOTE | 2024-02-28 11:33 | EKG12_ITS ---
Test Reason : REPEAT Blood Pressure : / mmHG Vent. Rate : 100 BPM Atrial Rate : 000 BPM P-R Int : 000 ms QRS Dur : 092 ms QT Int : 324 ms P-R-T Axes : 000 068 034 degrees QTc Int : 417 ms Atrial fibrillation Abnormal ECG Confirmed by Zachary Benites ([id number]), editor in chief GUSTAVO ALFREDO ([id number]) on 02/29/2024 2:52:19 PM Referred By: ELBERT Confirmed By:Zachary Benites
[2024-02-28 12:07] VITALS: BP 102/81; PULSE 92; RESP 20; TEMP 36.6; O2SAT 95
== END 2024-02-28 12:13 | disposition home or self-care (01) ==
PROVIDERS: Emergency Provider Emergency Medicine; PCP Physician Assistant; Visit Provider Emergency Medicine
DX: I48.0 Paroxysmal atrial fibrillation (principal); R00.2 Palpitations
CPT/HCPCS: 71045; 80048; 80053; 83735; 85025; 93005; 96361; 96374; 99285; J7030; A4216

== ENCOUNTER → 2024-04-23 | Outpatient (CLI) | payer MEDICARE, OTHER, SELFPAY ==
--- NOTE | 2024-04-23 12:37 | ECHOD_ITS ---
Reason For Study: ATRIAL FIBRILLATION Procedure This was a 2D Doppler, Color Flow transthoracic echocardiogram. The study was technically difficult. Exam performed in department. Left Ventricle Normal LV size. Left ventricular systolic function is normal. The left ventricular ejection fraction is 65 %. Stage 1 diastolic dysfunction. No regional wall motion abnormalities noted. Right Ventricle Normal RV size. Normal systolic function. Atria Normal left atrium. Normal right atrium. Mitral Valve Mild focal mitral valve calcification. Mild mitral valve prolapse. Mild (1+) mitral valve insufficiency. Tricuspid Valve Normal tricuspid valve. Mild (1+) tricuspid valve insufficiency. Pulmonary artery systolic pressure is 28 mmHg. Aortic Valve Trisinus/trileaflet aortic valve. Pulmonic Valve Normal pulmonic valve. Great Vessels Normal aortic root. The pulmonary artery is normal size. Inferior vena cava collapse with respiration. Pericardium/Pleural No pericardial effusion. MMode/2D Measurements & Calculations LVIDd: 4.1 cm IVSd: 0.76 cm LVOT diam: 1.9 cm LVIDs: 2.4 cm LVPWd: 0.75 cm LVOT area: 2.9 cm2 RVDd: 2.7 cm FS: 40.9 % Ao root diam: 3.3 cm LAV(MOD-bp): 30.0 ml LVAd ap4: 17.0 cm2 LAV(MOD-bp) Indexed: 19.0 ml/m2 LVLd ap4: 6.3 cm LAV(MOD-sp2): 30.0 ml EDV(MOD-sp4): 36.3 ml LAV(MOD-sp4): 26.5 ml EDV(sp4-el): 38.9 ml LVAs ap4: 9.1 cm2 LVLs ap4: 5.5 cm ESV(MOD-sp4): 13.0 ml ESV(sp4-el): 12.9 ml EF(MOD-sp4): 64.1 % EF(sp4-el): 66.8 % LVAd ap2: 16.7 cm2 SV(MOD-sp4): 23.3 ml SV(MOD-sp2): 22.4 ml LVLd ap2: 6.4 cm EDV(MOD-sp2): 35.6 ml EDV(sp2-el): 37.1 ml LVAs ap2: 9.4 cm2 LVLs ap2: 5.6 cm ESV(MOD-sp2): 13.2 ml ESV(sp2-el): 13.4 ml EF(MOD-sp2): 63.0 % SV(sp4-el): 26.0 ml LA dimension(2D): 3.4 cm LA A4 area: 11.8 cm2 RA A4 area: 10.0 cm2 TAPSE: 1.7 cm Time Measurements MV dec time: 0.23 sec Doppler Measurements & Calculations MV E max gavino: 72.2 cm/sec Lat Peak E' Gavino: 7.1 cm/sec Med Peak E' Gavino: 5.8 cm/sec MV A max gavino: 76.3 cm/sec E/E' lat: 10.2 E/E' med: 12.5 MV E/A: 0.95 Ao V2 max: 119.9 cm/sec LV V1 max: 80.3 cm/sec MV dec slope: 308.1 cm/sec2 Ao max P.7 mmHg LV V1 max P.6 mmHg Ao V2 mean: 73.0 cm/sec LV V1 mean P.5 mmHg Ao mean P.5 mmHg LV V1 mean: 59.2 cm/sec Ao V2 VTI: 22.9 cm LV V1 VTI: 17.8 cm AV (velocity ratio): 0.77 TIMBO(I,D): 2.2 cm2 TIMBO(V,D): 1.9 cm2 SV(LVOT): 51.5 ml PA V2 max: 74.8 cm/sec TR max gavino: 242.7 cm/sec PA max PG (full): 0.69 mmHg TR max P.6 mmHg ECHO/Echo Complete Interpretation Summary Normal LV size. Left ventricular systolic function is normal. The left ventricular ejection fraction is 65 %. Stage 1 diastolic dysfunction. Pulmonary artery systolic pressure is 28 mmHg. Mild mitral valve prolapse. Mild (1+) mitral valve insufficiency. Ordering Physician: Jacinto Emerson Referring Physician: Jacinto Emerson MD Performed By: Mariaa Griggs RDCS
== END | disposition home or self-care (01) ==
PROVIDERS: PCP Physician Assistant; Referring Provider Internal Medicine Cardiovascular Disease; Visit Provider Internal Medicine Cardiovascular Disease
DX: I48.91 Unspecified atrial fibrillation (principal); I34.1 Nonrheumatic mitral (valve) prolapse
CPT/HCPCS: 93306

== ENCOUNTER → 2024-10-22 | Outpatient (CLI) | payer MEDICARE, OTHER, SELFPAY | END | disposition home or self-care (01) | LOC: LABSPEC 15:20 | PROVIDERS: PCP Physician Assistant; Referring Provider Urology; Visit Provider Urology | DX: R30.0 Dysuria (principal) | CPT/HCPCS: 87077; 87086; 87088; 87186 ==

== ENCOUNTER → 2024-11-27 | Outpatient (CLI) | payer MEDICARE, OTHER, SELFPAY | END | disposition home or self-care (01) | LOC: LAB 15:16 | PROVIDERS: PCP Registered Nurse; Referring Provider Urology; Visit Provider Urology | DX: R30.0 Dysuria (principal) | CPT/HCPCS: 87086 ==